=== PATIENT | male | born 2000 | race Caucasian/White ===

== ENCOUNTER 2021-09-15 07:19 | Day surgery (SDC) | payer OTHER ==
[2021-09-15] VITALS (221 sets, daily range): BP systolic 77–121; BP diastolic 32–77
[~2021-09-15] VITALS: Ht 188 cm; Wt 69.0 kg
[2021-09-15 07:35] LABS: HEMATOCRIT 43.8 % (39.0-50.0); HEMOGLOBIN 14.6 g/dl (14.0-18.0); IMMATURE GRANULOCYTES 2.1 % (0.0-5.0); MEAN CELL VOLUME 91.6 fL CALC (80.0-100.0); MEAN CORPUSCULAR HGB 30.5 pG CALC (26.0-32.0); MEAN CORPUSCULAR HGB CONC 33.3 g/dL CAL (32.0-36.0); NEUT# 6.36 thou/uL (1.82-7.42); RED BLOOD COUNT 4.78 mill/uL (4.70-6.10)
[2021-09-15 07:45] LABS: ALBUMIN 4.9 g/dL (3.2-5.0); ALKALINE PHOSPHATASE 70 u/l (38-126); ANION GAP 13 (6-22 (CALC)); BILIRUBIN, TOTAL 0.5 mg/dL (0.0-1.4); BUN 13 mg/dL (9-20); BUN/CREATININE RATIO 20 (12-20 (CALC)); CARBON DIOXIDE 32 mmol/l (22-30); CHLORIDE 99 mmol/l (95-108); CREATININE 0.7 mg/dL (0.7-1.3); GFR FOR AFR.AMER. > 60 ML/MIN (>=60 (CALC)); GFR OTHER RACES > 60 ML/MIN (>=60 (CALC)); POTASSIUM 4.4 mmol/l (3.5-5.1); SGOT/AST 114 u/l (17-59); SODIUM 139 mmol/l (137-146); TOTAL PROTEIN 8.2 g/dL (6.3-8.2)
[2021-09-15] MEDS ORDERED: KLONOPIN2 MG PO (14:11)
[2021-09-15] MEDS ORDERED: CLONIDINE0.1 MG PO (14:11)
[2021-09-15] MEDS ORDERED: NALTREXONE50 MG PO (14:12)
[2021-09-16 03:39] VITALS: BP 119/60
[2021-09-16 05:52] LABS: HEMATOCRIT 40.7 % (39.0-50.0); HEMOGLOBIN 13.4 g/dl (14.0-18.0); IMMATURE GRANULOCYTES 1.1 % (0.0-5.0); MEAN CELL VOLUME 93.1 fL CALC (80.0-100.0); MEAN CORPUSCULAR HGB 30.7 pG CALC (26.0-32.0); MEAN CORPUSCULAR HGB CONC 32.9 g/dL CAL (32.0-36.0); NEUT# 12.52 thou/uL (1.82-7.42); RED BLOOD COUNT 4.37 mill/uL (4.70-6.10)
[2021-09-16 06:34] LABS: ALBUMIN 4.4 g/dL (3.2-5.0); ALKALINE PHOSPHATASE 64 u/l (38-126); BILIRUBIN, TOTAL 0.5 mg/dL (0.0-1.4); BUN 12 mg/dL (9-20); BUN/CREATININE RATIO 17 (12-20 (CALC)); CHLORIDE 104 mmol/l (95-108); CREATININE 0.7 mg/dL (0.7-1.3); GFR FOR AFR.AMER. > 60 ML/MIN (>=60 (CALC)); GFR OTHER RACES > 60 ML/MIN (>=60 (CALC)); MAGNESIUM 2.1 mg/dL (1.6-2.3); POTASSIUM 4.5 mmol/l (3.5-5.1); SGOT/AST 85 u/l (17-59); SODIUM 139 mmol/l (137-146); TOTAL PROTEIN 6.9 g/dL (6.3-8.2)
[2021-09-16 06:48] LABS: ANION GAP 19 (6-22 (CALC)); CARBON DIOXIDE 21 mmol/l (22-30)
[2021-09-16 08:25] VITALS: BP 121/60
[2021-09-16 08:35] VITALS: BP 121/60
== END 2021-09-16 14:04 | disposition home or self-care (01) | DRG 897 ==
LOC: ANR 07:19 → MS2 07:20 → ANR 08:00
PROVIDERS: ATTEND Anesthesiology
DX: F11.20 Opioid dependence, uncomplicated (principal)